=== PATIENT | male | born 1985 | race Caucasian/White ===

== ENCOUNTER 2019-09-26 10:09 | Emergency (ER) | payer SELFPAY ==
[~2019-09-26] VITALS: Ht 180.3 cm; Wt 99.1 kg
[2019-09-26 10:33] VITALS: TEMP 97.9
[2019-09-26] MEDS ORDERED: FLEXERIL 1010 MG/TAB PO (11:22)
[2019-09-26 12:24] VITALS: BP 125/76; PULSE 67
== END 2019-09-26 12:25 | disposition home or self-care (01) ==
LOC: COL.ER 10:09
DX: M54.6 Pain in thoracic spine (principal); M54.5 Low back pain
CPT/HCPCS: J1885